=== PATIENT | female | born 1945 | race Caucasian/White ===

== ENCOUNTER 2018-04-09 07:15 | Day surgery (SDC) | payer MEDICARE, OTHER ==
[2016-10-08 23:08] VITALS: BMI 28.3
[~2018-04-09 07:15] MED LIST: ceFAZolin IV 1 gm in Dextrose 1 GM/50 ML BAG IVPB ONE
[2018-04-09] MEDS ORDERED: Acetaminophen-Codeine 300/30 mg Tab PO PRN (08:09)
[2018-04-09] MEDS ORDERED: Dextrose 5%/0.45% NS 1,000 ML IV SCH (08:15)
[2018-04-09] MEDS ORDERED: Midazolam 2 MG/2 ML VIAL ONE (09:35)
[2018-04-09] MEDS ORDERED: Propofol 10 mg/ml Inj (20 ML) ONE (09:36)
[2018-04-09] MEDS ORDERED: HYDROmorphone 0.5 mg/0.5 ml ISec IVP PRN (09:58)
[2018-04-09 12:40] VITALS: RESP 16
[2018-04-09 12:42] VITALS: BP 157/72; PULSE 83; TEMP 97.7; O2SAT 99
--- NOTE | 2018-04-09 13:57 | OP ---
PROCEDURE DATE: 04/09/2018 PREOPERATIVE DIAGNOSES: Left vocal cord paralysis and dysphagia. POSTOPERATIVE DIAGNOSES: Left vocal cord paralysis and dysphagia. PROCEDURE: Micro direct laryngoscopy with biopsy. SIGNIFICANT FINDINGS: No masses or lesions noted. DESCRIPTION OF PROCEDURE: The patient was brought into the room, placed in supine position, anesthesia was initiated through an ET tube. Shoulder roll was placed, neck extended. The patient was draped in usual manner. Direct laryngoscope was inserted into the oral cavity, passed to the oropharynx and hypopharynx, the pharyngeal reed, base of tongue, vallecula, epiglottis, AE folds, false cords, true cords, arytenoids and piriform sinuses were brought into view. No masses or lesions were noted. The left vocal cord was brought into view and direct laryngoscope was suspended on the [place] [employer] usual manner. The microscope was brought into position, used to view the left vocal cord. No masses or lesions were noted. Multiple biopsies of the left vocal cord and left false cord were taken. Microscope was taken out of position. The direct laryngoscope was taken off suspension. The left piriform sinus was brought into view and multiple biopsies of left piriform sinus were taken. At that point, the direct laryngoscope was removed. The patient was taken off anesthesia and taken to recovery room in stable manner. Juan Cannon MD
== END 2018-04-09 12:30 | disposition home or self-care (01) ==
LOC: C.SDS 07:15
PROVIDERS: ATTEND Otolaryngology
DX: R13.14 Dysphagia, pharyngoesophageal phase (principal); J38.01 Paralysis of vocal cords and larynx, unilateral; R13.10 Dysphagia, unspecified
CPT/HCPCS: 31535; 88305; J0690; J2250; J2704; J3010